=== PATIENT | female | born 1940 | race Caucasian/White ===

== ENCOUNTER 2019-10-22 12:16 | Emergency (ER) | payer MEDICARE ==
[2019-10-22] MEDS ORDERED: Dexamethasone 10 MG/ML VIAL ONE (14:04)
--- NOTE | 2019-10-22 15:18 | ULT ---
LEFT LOWER EXTREMITY VENOUS DOPPLER ULTRASOUND: 10/22/2019 HISTORY: Pain. Swelling. Assess for DVT. COMPARISON: None. TECHNIQUE: Multiplanar santoyo-scale sonographic imaging of the venous structures of the left lower extremity obtai judy with color-flow and spectral analysis. FINDINGS: The left common femoral vein, greater saphenous vein, profunda femoral vein, femoral vein, popliteal vein and posterior tibial vein are patent. Normal blood flow, augmentation and compression within the deep venous system on the left. IMPRESSION: No evidence for left lower extremity DVT. POS: [facility]
== END 2019-10-22 15:30 | disposition home or self-care (01) ==
LOC: ERS 12:16
DX: M54.42 Lumbago with sciatica, left side (principal); M79.662 Pain in left lower leg; I25.10 Atherosclerotic heart disease of native coronary artery without angina pectoris; E78.5 Hyperlipidemia, unspecified; E78.00 Pure hypercholesterolemia, unspecified; F41.9 Anxiety disorder, unspecified; Z79.82 Long term (current) use of aspirin; Z79.899 Other long term (current) drug therapy
CPT/HCPCS: 96372; J1100

== ENCOUNTER 2024-07-19 13:19 | Outpatient (CLI) | payer MEDICARE | END 2024-07-19 13:20 | disposition home or self-care (01) | LOC: RAD 13:19 | PROVIDERS: ATTEND Internal Medicine | DX: R06.00 Dyspnea, unspecified (principal); Q25.46 Tortuous aortic arch; M85.88 Other specified disorders of bone density and structure, other site; S22.008A Other fracture of unspecified thoracic vertebra, initial encounter for closed fracture; M40.294 Other kyphosis, thoracic region; J43.9 Emphysema, unspecified; Z98.890 Other specified postprocedural states | CPT/HCPCS: 71046 ==